=== PATIENT | male | born 1995 | race Caucasian/White ===

== ENCOUNTER 2023-02-12 19:08 | Emergency (ER) | payer OTHER ==
[2023-02-12 19:20] VITALS: BP 145/85; PULSE 94; RESP 16; TEMP 99.2; BMI 31.0
[2023-02-12] MEDS ORDERED: IBUPROFEN 400 MG TABLET (FP) PO ONE ×2 (19:28→19:31)
== END 2023-02-12 20:04 | disposition home or self-care (01) ==
LOC: FER 19:08
DX: S80.212A Abrasion, left knee, initial encounter (principal); S60.512A Abrasion of left hand, initial encounter; S60.411A Abrasion of left index finger, initial encounter; Y35.811A Legal intervention involving manhandling, law enforcement official injured, initial encounter
CPT/HCPCS: 99283-25

== ENCOUNTER 2023-10-18 04:11 | Emergency (ER) | payer OTHER ==
[2023-10-18 04:16] VITALS: BP 144/85; PULSE 72; RESP 18; TEMP 99.1; BMI 31.0
[2023-10-18] MEDS: ACETAMINOPHEN 500 MG TABLET (FP) PO ONE (04:33)
[2023-10-18] MEDS ORDERED: ACETAMINOPHEN 500 MG TABLET (FP) ONE (04:33)
== END 2023-10-18 05:41 | disposition home or self-care (01) ==
LOC: FER 04:11
DX: S60.222A Contusion of left hand, initial encounter (principal); M79.645 Pain in left finger(s); X58.XXXA Exposure to other specified factors, initial encounter; Y93.89 Activity, other specified
CPT/HCPCS: 99283-25